=== PATIENT | female | born 1990 | race Caucasian/White ===

== ENCOUNTER 2021-11-07 10:57 | Observation (INO) ==
--- NOTE | 2021-11-07 11:08 | ED.PDOC ---
General ED Provider: Dr. CARMELO MANTILLA Chief Complaint: Nausea/Vomiting Stated Complaint: Abd pain with N and V for past 4-5 days, no fever or diarrhea, seen in ER here last night, w/u generally WNL, no worrisome findings, she did not fill any of the Rx given, no prior hx of GI problems, s/p kimberly. Time Seen by Provider: 11/07/21 11:07 Mode of Arrival: Ambulance Information Source: Patient Exam Limitations: No limitations Nursing and Triage Documentation Reviewed and Agree: Yes Does patient meet sepsis criteria?: No System Inflammatory Response Syndrome: Not Applicable Sepsis Protocol: For patient's 13 years and over: Temp is 96.8 and below OR 101 and greater Pulse >90 BPM Resp >20/minute Acutely Altered Mental Status Are patient's symptoms suggestive of a new infection, such as: -Pneumonia -Skin, Soft Tissue -Endocarditis -UTI -Bone, Joint Infection -Implantable Device -Acute Abdominal Infection -Wound Infection -Meningitis -Blood Stream Catheter Infection -Unknown GI Complaint Exam Vomiting/Diarrhea Complaint/Exam Onset/Duration: 4-5 d Symptoms Are: Still present Episodes of Vomiting over last 24 Hours: 20 Episodes of Diarrhea Over Last 24 Hours: 0 Initial Severity: Moderate Current Severity: Moderate Character of Vomiting: Reports Non-bilious Aggravating: Reports Food Alleviating: Reports None Associated Signs and Symptoms: Reports Abdominal pain and Cramping; Denies Dizziness, Light-headedness, Melena, Hematemesis or Fever Non-GI Risk Factors: Reports None Surgical Obstruction Risk Factors: Reports Prior abdominal surgery Related Surgical History: Reports Cholecystectomy Abdominal Findings: Present Other (generalized crampy pain) Review of Systems Review Of Systems Constitutional: Reports Malaise and Loss of appetite Eyes: Reports No symptoms Ears, Nose, Mouth, Throat: Reports No symptoms Respiratory: Reports No symptoms Cardiac: Reports No symptoms GI: Reports Abdominal pain, Nausea, Poor appetite, Poor fluid intake and Vomiting : Reports No symptoms Musculoskeletal: Reports No symptoms Skin: Reports No symptoms Neurological: Reports No symptoms Endocrine: Reports No symptoms Hematologic/Lymphatic: Reports No symptoms All Other Systems: Reviewed and Negative [facility] Family History Other No pertinent past medical history Social History Smoking and tobacco status: Never smoker Alcohol intake: never Substance use type: does not use Surgical History History of section Hx of cholecystectomy Tubal ligation status Female Reproductive History Menstrual Hx Hysterectomy: No Hx Tubal Ligation: Yes Physical Exam Physical Exam Appearance: Reports Ill-appearing Ill-appearing: Moderate Pain Distress: Moderate Eyes: Reports MOISE ENT: Reports Oropharynx normal Neck: Supple Respiratory: Reports Airway patent and Breath sounds clear Cardiovascular: Reports RRR and Pulses normal GI/: Reports Soft and Other (generalized cramping and pain) Musculoskeletal: Reports Normal strength and ROM intact Skin: Reports Warm and Dry Neurological: Reports Sensation intact, Motor intact and Alert Psychiatric: Reports Affect appropriate and Mood appropriate Interpretation Radiology Interpretation Xray Comments: Abd/pel CT done last night, report ? pyelo, but UA neg Critical Care Note Critical Care Note Total Critical Care Time (mins): 0 Course Course Hematology/Chemistry: 11/07/21 11:50 11/07/21 11:50 Orders, Labs, Meds: Lab Review 11/07/21 11/07/21 11/07/21 11:50 11:50 13:22 WBC 11.13 H RBC 4.26 Hgb 12.5 Hct 39.3 MCV 92.3 MCH 29.3 MCHC 31.8 RDW Coeff of Sylvia 14.0 Plt Count 717 H Immature Gran % (Auto) 0.5 Neut % (Auto) 78.0 H Lymph % (Auto) 15.5 Emanuel % (Auto) 5.2 Eos % (Auto) 0.4 Baso % (Auto) 0.4 Neut # (Auto) 8.7 H Lymph # (Auto) 1.7 Emanuel # (Auto) 0.6 Eos # (Auto) 0.1 Baso # (Auto) 0.1 Immature Gran # (Auto) 0.1 Sodium 138.3 Potassium 3.68 Chloride 103.3 Carbon Dioxide 26.8 Anion Gap 11.88 BUN 7.2 Creatinine 0.68 Estimated GFR (MDRD) 102.00 BUN/Creatinine Ratio 10.58 Glucose 103.5 Calcium 9.23 Total Bilirubin 0.77 AST 26.3 ALT 14.2 Alkaline Phosphatase 129.7 H Total Protein 7.78 Albumin 4.15 Globulin 3.63 Albumin/Globulin Ratio 1.14 Amylase 92.7 Lipase 83.6 Urine Color Yellow Urine Clarity Clear Urine pH 8.5 Ur Specific [place] 1.020 Urine Protein Trace H Urine Glucose (UA) Negative Urine Ketones Trace H Urine Blood Trace-intact H Urine Nitrite Negative Urine Bilirubin Negative Urine Urobilinogen 0.2 Ur Leukocyte Esterase Negative Urine Microscopic RBC 10-20 Ur Squamous Epith Cells 5-10 Urine Bacteria 2+ Urine Opiates Screen Ur Oxycodone Screen Urine Methadone Screen Ur Propoxyphene Screen Ur Barbiturates Screen U Tricyclic Antidepress Ur Phencyclidine Scrn Ur Amphetamine Screen U Methamphetamines Scrn U Benzodiazepines Scrn Urine Cocaine Screen U Cannabinoids Screen SARS CoV-2 RNA Rapid ALTON 11/07/21 11/07/21 13:22 16:45 WBC RBC Hgb Hct MCV MCH MCHC RDW Coeff of Sylvia Plt Count Immature Gran % (Auto) Neut % (Auto) Lymph % (Auto) Emanuel % (Auto) Eos % (Auto) Baso % (Auto) Neut # (Auto) Lymph # (Auto) Emanuel # (Auto) Eos # (Auto) Baso # (Auto) Immature Gran # (Auto) Sodium Potassium Chloride Carbon Dioxide Anion Gap BUN Creatinine Estimated GFR (MDRD) BUN/Creatinine Ratio Glucose Calcium Total Bilirubin AST ALT Alkaline Phosphatase Total Protein Albumin Globulin Albumin/Globulin Ratio Amylase Lipase Urine Color Urine Clarity Urine pH Ur Specific [place] Urine Protein Urine Glucose (UA) Urine Ketones Urine Blood Urine Nitrite Urine Bilirubin Urine Urobilinogen Ur Leukocyte Esterase Urine Microscopic RBC Ur Squamous Epith Cells Urine Bacteria Urine Opiates Screen Positive H Ur Oxycodone Screen Negative Urine Methadone Screen Negative Ur Propoxyphene Screen Negative Ur Barbiturates Screen Negative U Tricyclic Antidepress Negative Ur Phencyclidine Scrn Negative Ur Amphetamine Screen Negative U Methamphetamines Scrn Negative U Benzodiazepines Scrn Negative Urine Cocaine Screen Negative U Cannabinoids Screen Positive H SARS CoV-2 RNA Rapid ALTON Negative Orders Category Date Time Status ADMIT OBSERVATION [PLACE PATIENT OBSERVATION] .TO ADMISSION 11/07/21 16:28 Active MEDSURG (NON-MONITORED BED) ACTIVITY .Up ad Agnieszka CARE 11/07/21 16:30 Active INTAKE & OUTPUT Q8HR CARE 11/07/21 16:31 Active IP: INSERT SALINE LOCK ONCE CARE 11/07/21 16:31 Active IV ACCESS ONCE CARE 11/07/21 11:20 Active VITAL SIGNS Q8HR CARE 11/07/21 16:31 Completed REGULAR DIET DIETARY 11/07/21 Dinner Ordered AMYLASE Stat LAB 11/07/21 11:50 Completed CBC W/ AUTO DIFF DAILY@0600 LAB 11/08/21 06:00 Ordered CBC W/ AUTO DIFF DAILY@0600 LAB 11/09/21 06:00 Ordered CBC W/ AUTO DIFF Stat LAB 11/07/21 11:50 Completed COMPREHENSIVE METABOLIC PANEL DAILY@0600 LAB 11/08/21 06:00 Ordered COMPREHENSIVE METABOLIC PANEL DAILY@0600 LAB 11/09/21 06:00 Ordered COMPREHENSIVE METABOLIC PANEL Stat LAB 11/07/21 11:50 Completed DRUG SCREEN, URINE, RAPID Stat LAB 11/07/21 13:22 Completed LIPASE Stat LAB 11/07/21 11:50 Completed SARS COV-2 RNA RAPID ALTON Stat LAB 11/07/21 16:45 Completed URINALYSIS C & S IF INDICATED Stat LAB 11/07/21 13:22 Completed URINE CULTURE Stat LAB 11/07/21 13:22 Received Dicyclomine HCl [Bentyl] MEDS 11/07/21 12:58 Discontinued 20 mg PO ONCE ONE Hydromorphone HCl [Dilaudid 1 mg/ml Syringe] MEDS 11/07/21 14:31 Discontinued 1 mg IVP ONCE ONE Mag Hydrox/Al Hydrox/Simeth [Mylanta Susp] MEDS 11/07/21 12:58 Discontinued 30 ml PO ONCE ONE Metoclopramide HCl [Reglan] MEDS 11/07/21 17:31 Active 10 mg IVP ACHS PRN Metoclopramide HCl [Reglan] MEDS 11/07/21 14:31 Discontinued 10 mg IVP ONCE ONE Pantoprazole Sodium [Protonix IV] MEDS 11/07/21 11:23 Discontinued 40 mg IVP ONCE ONE Prochlorperazine Edisylate [Compazine] MEDS 11/07/21 13:34 Discontinued 10 mg IVP ONCE ONE Promethazine HCl [Phenergan 25 mg/ml Vial] MEDS 11/07/21 12:19 Discontinued 25 mg .ROUTE .STK-MED ONE Promethazine HCl [Phenergan 25 mg/ml Vial] 25 mg MEDS 11/07/21 11:20 Discontinued 0.9 % Sodium Chloride [Sodium Chloride] 50 ml IV ONCE Sodium Chloride 0.9% [Sodium Chloride] 1,000 ml MEDS 11/07/21 17:31 Discontinued IV 125 mls/hr Sodium Chloride 0.9% [Sodium Chloride] 1,000 ml MEDS 11/07/21 12:33 Discontinued IV BOLUS RESUSCITATION STATUS Routine OTHERS 11/07/21 16:30 Ordered Medications Generic Name Dose Route Start Last Admin Trade Name Arpitq PRN Reason Stop Dose Admin Sodium Chloride 1,000 mls @ 125 mls/hr 11/08/21 02:00 Sodium Chloride IV .Q8H MARILY Metoclopramide HCl 10 mg 11/07/21 17:31 11/07/21 20:57 Metoclopramide Hcl 10 Mg/2 Ml IVP 10 mg ACHS PRN Administration Nausea / Vomiting Ondansetron HCl 8 mg 11/07/21 18:00 11/07/21 23:53 Ondansetron Hcl/Pf 4 Mg/2 Ml Sdv IVP 8 mg Q6H MARILY Administration Pantoprazole Sodium 80 mg 11/07/21 18:30 11/07/21 18:21 Pantoprazole Sodium 40 Mg Vial IVP 80 mg DAILY MARILY Administration Discontinued Medications Generic Name Dose Route Start Last Admin Trade Name Ross PRN Reason Stop Dose Admin Al Hydroxide/Mg Hydroxide 30 ml 11/07/21 12:58 11/07/21 13:08 Mag Hydrox/Al Hydrox/Simeth 30 Ml Cup PO 11/07/21 12:59 30 ml ONCE ONE Administration Dicyclomine HCl 20 mg 11/07/21 12:58 11/07/21 13:07 Dicyclomine Hcl 10 Mg Capsule PO 11/07/21 12:59 20 mg ONCE ONE Administration Hydromorphone HCl 1 mg 11/07/21 14:31 11/07/21 14:56 Hydromorphone Hcl 1 Mg/Ml Syringe IVP 11/07/21 14:32 1 mg ONCE ONE Administration Promethazine HCl 25 mg/ Sodium 51 mls @ 75 mls/hr 11/07/21 11:20 11/07/21 12:29 Chloride IV 11/07/21 12:00 75 mls/hr ONCE ONE Administration Sodium Chloride 1,000 mls @ 1,000 mls/hr 11/07/21 12:33 11/07/21 12:34 Sodium Chloride IV 11/07/21 13:32 1,000 mls/hr BOLUS STA Administration Sodium Chloride 1,000 mls @ 125 mls/hr 11/07/21 17:31 11/07/21 18:16 Sodium Chloride IV 11/08/21 01:30 125 mls/hr .Q8H STA Administration Metoclopramide HCl 10 mg 11/07/21 14:31 11/07/21 14:56 Metoclopramide Hcl 10 Mg/2 Ml IVP 11/07/21 14:32 10 mg ONCE ONE Administration Pantoprazole Sodium 40 mg 11/07/21 11:23 11/07/21 12:30 Pantoprazole Sodium 40 Mg Vial IVP 11/07/21 11:24 40 mg ONCE ONE Administration Prochlorperazine Edisylate 10 mg 11/07/21 13:34 11/07/21 13:44 Prochlorperazine Edisylate 10 Mg/2 Ml Sdv IVP 11/07/21 13:35 10 mg ONCE ONE Administration Vital Signs: Temp Pulse Resp BP Pulse Ox 11/07/21 10:58 97.4 F L 66 18 131/83 100 Discharge Plan Discharge Patient Disposition: PLACED OBSERVATION Discharge Problem: Refractory nausea and vomiting, Abdominal pain ED Provider: CARMELO MANTILLA Condition: Stable Physician Progress Note: [Difficult to get symptoms under control, viral infxn vs sig gastritis, placed her in obs, no PCP.]
[2021-11-07] MEDS ORDERED: LACTATED RINGERS 1,000 ML IV STA (11:20)
[2021-11-07] MEDS ORDERED: PHENERGAN 25 MG/ML VIAL 25 MG in SODIUM CHLORIDE 50 ML IV ONE (11:20)
[2021-11-07] MEDS ORDERED: PROTONIX IV IVP ONE (11:23)
[2021-11-07 11:44] LABS: BASOPHILS # (AUTO) 0.1 K/uL (0-0.2); BASOPHILS % (AUTO) 0.4 % (0.0-3.0); EOSINOPHILS # (AUTO) 0.1 K/ul (0.0-0.7); EOSINOPHILS % (AUTO) 0.4 % (0.0-7.0); HEMATOCRIT 39.3 % (37.0-47.0); HEMOGLOBIN 12.5 g/dl (12.0-16.0); IMMATURE GRANULOCYTE # (AUTO) 0.1 (0.0-1.0); IMMATURE GRANULOCYTE % (AUTO) 0.5 % (0.0-5.0); LYMPHOCYTES # (AUTO) 1.7 K/uL (0.60-3.4); LYMPHOCYTES % (AUTO) 15.5 (10.0-50.0); MEAN CORPUSCULAR HEMOGLOBIN 29.3 pg (27.0-31.0); MEAN CORPUSCULAR HGB CONC 31.8 (31.8-35.4); MEAN CORPUSCULAR VOLUME 92.3 fl (81.0-99.0); MONOCYTES # (AUTO) 0.6 K/uL (0.4-2.0); MONOCYTES % (AUTO) 5.2 (0-10); NEUTROPHILS # (AUTO) 8.7 K/ul (2.0-6.9); PLATELET COUNT 717 10^3/uL (140-440); RED BLOOD COUNT 4.26 10^6/ul (4.20-5.40); WHITE BLOOD COUNT 11.13 K/ul (4.6-10.2)
[2021-11-07 12:00] LABS: ALANINE AMINOTRANSFERASE 14.2 U/L (0-35); ALBUMIN 4.15 g/dL (3.5-5.0); ALKALINE PHOSPHATASE 129.7 U/L (38-126); AMYLASE 92.7 U/L (30-110); ASPARTATE AMINO TRANSFERASE 26.3 U/L (14-36); BILIRUBIN,TOTAL 0.77 mg/dL (0.2-1.3); BLOOD UREA NITROGEN 7.2 mg/dL (7-17); CALCIUM 9.23 mg/dL (8.4-10.2); CARBON DIOXIDE 26.8 mmol/L (22-30.0); CHLORIDE 103.3 mmol/L (98-107); CREATININE 0.68 mg/dL (0.60-1.30); GLUCOSE 103.5 mg/dL (74-106); LIPASE 83.6 U/L (23-300); POTASSIUM 3.68 mmol/L (3.5-5.1); SODIUM 138.3 mmol/L (134.5-145); TOTAL PROTEIN 7.78 g/dL (6.3-8.2)
[2021-11-07] MEDS ORDERED: PHENERGAN 25 MG/ML VIAL ONE (12:19)
[2021-11-07] MEDS ORDERED: SODIUM CHLORIDE 1,000 ML IV STA ×2 (12:33→17:31)
[2021-11-07] MEDS ORDERED: MYLANTA SUSP PO ONE (12:58)
[2021-11-07] MEDS ORDERED: BENTYL PO ONE (12:58)
[2021-11-07 13:32] LABS: BILIRUBIN,URINE Negative (NEGATIVE); CLARITY,URINE Clear (CLEAR); COLOR,URINE Yellow (YELLOW); GLUCOSE, URINE (UA) Negative (NEGATIVE); KETONES,URINE Trace (NEGATIVE); LEUKOCYTE ESTERASE ,URINE Negative (NEGATIVE); NITRITE,URINE Negative (NEGATIVE); PH,URINE 8.5 (5-9); PROTEIN,URINE Trace (NEGATIVE); URINE, BLOOD Trace-intact (NEGATIVE); UROBILINOGEN,URINE 0.2 (0.2)
[2021-11-07] MEDS ORDERED: COMPAZINE IVP ONE (13:34)
[2021-11-07 13:36] LABS: BACTERIA,URINE 2+ (NOT PRESENT)
[2021-11-07 13:41] LABS: AMPHETAMINE SCREEN,URINE NEGATIVE (NEGATIVE); BARBITURATE SCREEN,URINE NEGATIVE (NEGATIVE); BENZODIAZEPINES SCREEN,URINE NEGATIVE (NEGATIVE); CANNABINOID SCREEN,URINE POSITIVE (NEGATIVE); COCAIN SCREEN,URINE NEGATIVE (NEGATIVE); METHADONE URINE SCREEN NEGATIVE (NEGATIVE); METHAMPHETAMINES SCREEN,URINE NEGATIVE (NEGATIVE); OPIATE SCREEN,URINE POSITIVE (NEGATIVE); OXYCODONE URINE SCREEN NEGATIVE (NEGATIVE); PHENCYCLIDINE SCREEN,URINE NEGATIVE (NEGATIVE); PROPOXYPHENE URINE SCREEN NEGATIVE (NEGATIVE); TRICYCLIC ANTIDEPRESSANTS URIN NEGATIVE (NEGATIVE)
[2021-11-07] MEDS ORDERED: REGLAN IVP ONE (14:31)
[2021-11-07] MEDS ORDERED: DILAUDID 1 MG/ML SYRINGE IVP ONE (14:31)
[2021-11-07] MEDS ORDERED: VERSED IVP ONE (17:41)
[2021-11-07] MEDS ORDERED: SUBLIMAZE IVP ONE (17:41)
[2021-11-07 17:59] VITALS: BMI 30.3
[2021-11-07] MEDS ORDERED: PROTONIX IV SCH (18:00)
[2021-11-07] MEDS ORDERED: SODIUM CHLORIDE IV SCH (18:00)
[2021-11-07] MEDS ORDERED: PROTONIX IV ONE (18:10)
[2021-11-07] MEDS: PROTONIX IV IVP SCH (18:21)
[2021-11-07] MEDS: ZOFRAN 4 MG/2 ML IVP SCH ×2 (18:26→23:53)
[2021-11-07] MEDS: REGLAN IVP PRN (20:57)
[2021-11-08] MEDS ORDERED: SODIUM CHLORIDE 1,000 ML IV SCH (02:00)
[2021-11-08 05:24] LABS: BASOPHILS # (AUTO) 0.1 K/uL (0-0.2); BASOPHILS % (AUTO) 0.4 % (0.0-3.0); EOSINOPHILS % (AUTO) 0.1 % (0.0-7.0); HEMATOCRIT 39.8 % (37.0-47.0); HEMOGLOBIN 12.9 g/dl (12.0-16.0); IMMATURE GRANULOCYTE # (AUTO) 0.1 (0.0-1.0); IMMATURE GRANULOCYTE % (AUTO) 0.5 % (0.0-5.0); LYMPHOCYTES # (AUTO) 2.1 K/uL (0.60-3.4); LYMPHOCYTES % (AUTO) 14.5 (10.0-50.0); MEAN CORPUSCULAR HEMOGLOBIN 30.1 pg (27.0-31.0); MEAN CORPUSCULAR HGB CONC 32.4 (31.8-35.4); MEAN CORPUSCULAR VOLUME 92.8 fl (81.0-99.0); MONOCYTES # (AUTO) 0.6 K/uL (0.4-2.0); NEUTROPHILS # (AUTO) 11.4 K/ul (2.0-6.9); NEUTROPHILS % (AUTO) 80.5 % (42.2-75.2); PLATELET COUNT 749 10^3/uL (140-440); RDW COEFFICIENT OF VARIATION 13.9 % (11.6-14.8); RED BLOOD COUNT 4.29 10^6/ul (4.20-5.40); WHITE BLOOD COUNT 14.17 K/ul (4.6-10.2)
[2021-11-08 05:36] LABS: ALANINE AMINOTRANSFERASE 12.8 U/L (0-35); ALBUMIN 4.21 g/dL (3.5-5.0); ASPARTATE AMINO TRANSFERASE 22.3 U/L (14-36); BILIRUBIN,TOTAL 0.63 mg/dL (0.2-1.3); BLOOD UREA NITROGEN 4.8 mg/dL (7-17); CALCIUM 9.25 mg/dL (8.4-10.2); CARBON DIOXIDE 26.2 mmol/L (22-30.0); CREATININE 0.68 mg/dL (0.60-1.30); GLUCOSE 106.8 mg/dL (74-106); POTASSIUM 3.94 mmol/L (3.5-5.1); SODIUM 139.1 mmol/L (134.5-145); TOTAL PROTEIN 7.88 g/dL (6.3-8.2)
[2021-11-08] MEDS: ZOFRAN 4 MG/2 ML IVP SCH (05:39)
[2021-11-08] MEDS: HALDOL IVP PRN ×2 (08:00→17:30)
[2021-11-08] MEDS ORDERED: LEVAQUIN 500 MG/100 ML D5W 500 MG/100 ML BAG IV SCH (09:00)
[2021-11-08] MEDS ORDERED: LEVAQUIN 750 MG/150 ML D5W 750 MG/150 ML BAG IV SCH (09:00)
--- NOTE | 2021-11-08 09:01 | PCM ---
Chief Complaint Chief Complaint: Intractable nausea, vomiting and abdominal pain History of Present Illness History of Present Illness: Patient is a 31 year old female who was two days ago for nausea and vomiting and abdominal pain for 4 days. She had medications and was sent home feeling better. She returned yesterday with similar complaints. She denied any urinary symptoms and was admitted for nausea vomiting and abdominal pain. pain is better after Dilaudid. Nausea has improved with Haldol. In the mean time Urine culture from the first day is back and is positive for >100k bacteria. Ct on first day was suggestive of Pyelo. Today she continues to have diffuse abdominal pain but nausea is better. Review of Systems Constitutional: Reports Loss of appetite Eyes: Reports No symptoms Ears: Reports No symptoms Nose: Reports No symptoms Throat: Reports No symptoms Mouth: Reports No symptoms Cardiovascular: Reports No symptoms Gastrointestinal: Reports Abdominal pain, Nausea and Vomiting Genitourinary: Denies dysuria, hematuria or frequency Neurological: Reports No symptoms Musculoskeletal: Reports No symptoms Skin: Reports No symptoms Immunology: Reports No symptoms Hematology: Reports No symptoms Endocrine: Reports No symptoms Psychiatric: Reports No symptoms Habits: Reports Substance use (used marijuana recenlty ) Allergies Allergies Allergy/AdvReac Type Severity Reaction Status Date / Time No Known Allergies Allergy Verified 11/07/21 11:02 [facility] Medical History (Updated 11/08/21 @ 08:59 by ELIF CERVANTES MD) Pyelonephritis Surgical History History of section Hx of cholecystectomy Tubal ligation status Family History Other No pertinent past medical history Social History Smoking and tobacco status: Never smoker Alcohol intake: never Substance use type: does not use Medications Medications: Medications Generic Name Dose Route Start Last Admin Trade Name Freq PRN Reason Stop Dose Admin Haloperidol Lactate 1 - 2 mg 11/08/21 07:39 11/08/21 08:00 Haloperidol Lactate 5 Mg/Ml Vial IVP 2 mg Q6H PRN Administration NAUSEA/VOMITTING Hydromorphone HCl 1 mg 11/08/21 08:44 Hydromorphone Hcl 1 Mg/Ml Syringe IVP Q4HR PRN MODERATE PAIN Levofloxacin/Dextrose 750 mg in 150 mls @ 100 mls/hr 11/08/21 09:00 Levaquin 750 Mg/150 Ml D5w IV 11/11/21 08:59 DAILY MARILY Potassium Chloride/Dextrose/Sod Cl 1,000 mls @ 150 mls/hr 11/08/21 09:00 D5%-1/2ns-Kcl 20 Meq/L Iv Agustina IV .Q6H40M MARILY Metoclopramide HCl 10 mg 11/07/21 17:31 11/07/21 20:57 Metoclopramide Hcl 10 Mg/2 Ml IVP 10 mg ACHS PRN Administration Nausea / Vomiting Pantoprazole Sodium 80 mg 11/07/21 18:30 11/07/21 18:21 Pantoprazole Sodium 40 Mg Vial IVP 80 mg DAILY MARILY Administration Body Composition Height: 5 ft 3 in Weight: 77.706 kg Body Mass Index (BMI): 30.3 Vital Signs Temperature: 97.7 F Pulse Rate: 77 Respiratory Rate: 18 Blood Pressure: 120/69 O2 Sat by Pulse Oximetry: 100 Physical Examination Appearance: Reports Ill-appearing Ill-appearing: Moderate Pain Distress: Severe Eyes: Reports Conjunctiva clear ENT: Reports Nose normal and Oropharynx normal Neck: Not Examined Respiratory: Reports Airway patent and Breath sounds clear Cardiovascular: Reports RRR, Pulses normal and No rub GI/: Reports Soft and Tender (Diffusely) Musculoskeletal: Reports Normal strength and ROM intact Skin: Reports Warm and Dry Neurological: Reports Motor intact, Alert and Oriented Psychiatric: Reports Anxious Lab/Tests/Diagnostic Imaging Lab/Tests/Diagnostic Imaging: Lab Review 11/07/21 11/07/21 11/07/21 11:50 11:50 13:22 WBC 11.13 H RBC 4.26 Hgb 12.5 Hct 39.3 MCV 92.3 MCH 29.3 MCHC 31.8 RDW Coeff of Sylvia 14.0 Plt Count 717 H Immature Gran % (Auto) 0.5 Neut % (Auto) 78.0 H Lymph % (Auto) 15.5 Larue % (Auto) 5.2 Eos % (Auto) 0.4 Baso % (Auto) 0.4 Neut # (Auto) 8.7 H Lymph # (Auto) 1.7 Larue # (Auto) 0.6 Eos # (Auto) 0.1 Baso # (Auto) 0.1 Immature Gran # (Auto) 0.1 Sodium 138.3 Potassium 3.68 Chloride 103.3 Carbon Dioxide 26.8 Anion Gap 11.88 BUN 7.2 Creatinine 0.68 Estimated GFR (MDRD) 102.00 BUN/Creatinine Ratio 10.58 Glucose 103.5 Calcium 9.23 Total Bilirubin 0.77 AST 26.3 ALT 14.2 Alkaline Phosphatase 129.7 H Total Protein 7.78 Albumin 4.15 Globulin 3.63 Albumin/Globulin Ratio 1.14 Amylase 92.7 Lipase 83.6 Urine Color Yellow Urine Clarity Clear Urine pH 8.5 Ur Specific Spring 1.020 Urine Protein Trace H Urine Glucose (UA) Negative Urine Ketones Trace H Urine Blood Trace-intact H Urine Nitrite Negative Urine Bilirubin Negative Urine Urobilinogen 0.2 Ur Leukocyte Esterase Negative Urine Microscopic RBC 10-20 Ur Squamous Epith Cells 5-10 Urine Bacteria 2+ Urine Opiates Screen Ur Oxycodone Screen Urine Methadone Screen Ur Propoxyphene Screen Ur Barbiturates Screen U Tricyclic Antidepress Ur Phencyclidine Scrn Ur Amphetamine Screen U Methamphetamines Scrn U Benzodiazepines Scrn Urine Cocaine Screen U Cannabinoids Screen SARS CoV-2 RNA Rapid ALTON 11/07/21 11/07/21 11/08/21 13:22 16:45 05:05 WBC 14.17 H RBC 4.29 Hgb 12.9 Hct 39.8 MCV 92.8 MCH 30.1 MCHC 32.4 RDW Coeff of Sylvia 13.9 Plt Count 749 H Immature Gran % (Auto) 0.5 Neut % (Auto) 80.5 H Lymph % (Auto) 14.5 Larue % (Auto) 4.0 Eos % (Auto) 0.1 Baso % (Auto) 0.4 Neut # (Auto) 11.4 H Lymph # (Auto) 2.1 Larue # (Auto) 0.6 Eos # (Auto) 0.0 Baso # (Auto) 0.1 Immature Gran # (Auto) 0.1 Sodium Potassium Chloride Carbon Dioxide Anion Gap BUN Creatinine Estimated GFR (MDRD) BUN/Creatinine Ratio Glucose Calcium Total Bilirubin AST ALT Alkaline Phosphatase Total Protein Albumin Globulin Albumin/Globulin Ratio Amylase Lipase Urine Color Urine Clarity Urine pH Ur Specific Spring Urine Protein Urine Glucose (UA) Urine Ketones Urine Blood Urine Nitrite Urine Bilirubin Urine Urobilinogen Ur Leukocyte Esterase Urine Microscopic RBC Ur Squamous Epith Cells Urine Bacteria Urine Opiates Screen Positive H Ur Oxycodone Screen Negative Urine Methadone Screen Negative Ur Propoxyphene Screen Negative Ur Barbiturates Screen Negative U Tricyclic Antidepress Negative Ur Phencyclidine Scrn Negative Ur Amphetamine Screen Negative U Methamphetamines Scrn Negative U Benzodiazepines Scrn Negative Urine Cocaine Screen Negative U Cannabinoids Screen Positive H SARS CoV-2 RNA Rapid ALTON Negative 11/08/21 05:05 WBC RBC Hgb Hct MCV MCH MCHC RDW Coeff of Sylvia Plt Count Immature Gran % (Auto) Neut % (Auto) Lymph % (Auto) Larue % (Auto) Eos % (Auto) Baso % (Auto) Neut # (Auto) Lymph # (Auto) Larue # (Auto) Eos # (Auto) Baso # (Auto) Immature Gran # (Auto) Sodium 139.1 Potassium 3.94 Chloride 104.0 Carbon Dioxide 26.2 Anion Gap 12.84 BUN 4.8 L Creatinine 0.68 Estimated GFR (MDRD) 102.00 BUN/Creatinine Ratio 7.05 Glucose 106.8 H Calcium 9.25 Total Bilirubin 0.63 AST 22.3 ALT 12.8 Alkaline Phosphatase 121.0 Total Protein 7.88 Albumin 4.21 Globulin 3.67 Albumin/Globulin Ratio 1.14 Amylase Lipase Urine Color Urine Clarity Urine pH Ur Specific Spring Urine Protein Urine Glucose (UA) Urine Ketones Urine Blood Urine Nitrite Urine Bilirubin Urine Urobilinogen Ur Leukocyte Esterase Urine Microscopic RBC Ur Squamous Epith Cells Urine Bacteria Urine Opiates Screen Ur Oxycodone Screen Urine Methadone Screen Ur Propoxyphene Screen Ur Barbiturates Screen U Tricyclic Antidepress Ur Phencyclidine Scrn Ur Amphetamine Screen U Methamphetamines Scrn U Benzodiazepines Scrn Urine Cocaine Screen U Cannabinoids Screen SARS CoV-2 RNA Rapid ALTON Orders Category Date Time Status ADMIT OBSERVATION [PLACE PATIENT OBSERVATION] .TO ADMISSION 11/07/21 16:28 Active MEDSURG (NON-MONITORED BED) ACTIVITY .Up ad Agnieszka CARE 11/07/21 16:30 Active INTAKE & OUTPUT Q8HR CARE 11/07/21 16:31 Active IP: INSERT SALINE LOCK ONCE CARE 11/07/21 16:31 Active IV ACCESS ONCE CARE 11/07/21 11:20 Active VITAL SIGNS Q8HR CARE 11/07/21 16:31 Completed REGULAR DIET DIETARY 11/07/21 Dinner Ordered AMYLASE Stat LAB 11/07/21 11:50 Completed BLOOD CULTURE Stat LAB 11/08/21 08:27 Ordered CBC W/ AUTO DIFF DAILY@0600 LAB 11/08/21 05:05 Completed CBC W/ AUTO DIFF DAILY@0600 LAB 11/09/21 06:00 Ordered CBC W/ AUTO DIFF Stat LAB 11/07/21 11:50 Completed COMPREHENSIVE METABOLIC PANEL DAILY@0600 LAB 11/08/21 05:05 Completed COMPREHENSIVE METABOLIC PANEL DAILY@0600 LAB 11/09/21 06:00 Ordered COMPREHENSIVE METABOLIC PANEL Stat LAB 11/07/21 11:50 Completed DRUG SCREEN, URINE, RAPID Stat LAB 11/07/21 13:22 Completed LIPASE Stat LAB 11/07/21 11:50 Completed SARS COV-2 RNA RAPID ALTON Stat LAB 11/07/21 16:45 Completed URINALYSIS C & S IF INDICATED Stat LAB 11/07/21 13:22 Completed URINE CULTURE Stat LAB 11/07/21 13:22 Results Dicyclomine HCl [Bentyl] MEDS 11/07/21 12:58 Discontinued 20 mg PO ONCE ONE Haloperidol Lactate [Haldol] MEDS 11/08/21 07:39 Active 1 - 2 mg IVP Q6H PRN Hydromorphone HCl [Dilaudid 1 mg/ml Syringe] MEDS 11/07/21 14:31 Discontinued 1 mg IVP ONCE ONE Hydromorphone HCl [Dilaudid 1 mg/ml Syringe] MEDS 11/08/21 08:44 Active 1 mg IVP Q4HR PRN Levofloxacin/D5w [Levaquin 750 mg/150 ml D5w] MEDS 11/08/21 09:00 Active 750 mg in 150 ml IV DAILY Mag Hydrox/Al Hydrox/Simeth [Mylanta Susp] MEDS 11/07/21 12:58 Discontinued 30 ml PO ONCE ONE Metoclopramide HCl [Reglan] MEDS 11/07/21 17:31 Active 10 mg IVP ACHS PRN Metoclopramide HCl [Reglan] MEDS 11/07/21 14:31 Discontinued 10 mg IVP ONCE ONE Ondansetron HCl/Pf [Zofran 4 mg/2 ml] MEDS 11/07/21 18:00 Discontinued 8 mg IVP Q6H Pantoprazole Sodium [Protonix IV] MEDS 11/07/21 11:23 Discontinued 40 mg IVP ONCE ONE Pantoprazole Sodium [Protonix IV] MEDS 11/07/21 18:10 Discontinued 80 mg .ROUTE .STK-MED ONE Pantoprazole Sodium [Protonix IV] MEDS 11/07/21 18:30 Active 80 mg IVP DAILY Potassium Chloride/D5-0.45NACL [D5%-1/2Ns-KCl 20 Meq/l MEDS 11/08/21 09:00 Active IV Agustina] 1,000 ml IV 150 mls/hr Prochlorperazine Edisylate [Compazine] MEDS 11/07/21 13:34 Discontinued 10 mg IVP ONCE ONE Promethazine HCl [Phenergan 25 mg/ml Vial] MEDS 11/07/21 12:19 Discontinued 25 mg .ROUTE .STK-MED ONE Promethazine HCl [Phenergan 25 mg/ml Vial] 25 mg MEDS 11/07/21 11:20 Discontinued 0.9 % Sodium Chloride [Sodium Chloride] 50 ml IV ONCE Sodium Chloride 0.9% [Sodium Chloride] 1,000 ml MEDS 11/07/21 17:31 Discontinued IV 125 mls/hr Sodium Chloride 0.9% [Sodium Chloride] 1,000 ml MEDS 11/08/21 02:00 Active IV 125 mls/hr Sodium Chloride 0.9% [Sodium Chloride] 1,000 ml MEDS 11/07/21 12:33 Discontinued IV BOLUS RESUSCITATION STATUS Routine OTHERS 11/07/21 16:30 Ordered Medications Generic Name Dose Route Start Last Admin Trade Name Freq PRN Reason Stop Dose Admin Haloperidol Lactate 1 - 2 mg 11/08/21 07:39 11/08/21 08:00 Haloperidol Lactate 5 Mg/Ml Vial IVP 2 mg Q6H PRN Administration NAUSEA/VOMITTING Hydromorphone HCl 1 mg 11/08/21 08:44 Hydromorphone Hcl 1 Mg/Ml Syringe IVP Q4HR PRN MODERATE PAIN Levofloxacin/Dextrose 750 mg in 150 mls @ 100 mls/hr 11/08/21 09:00 Levaquin 750 Mg/150 Ml D5w IV 11/11/21 08:59 DAILY MARILY Potassium Chloride/Dextrose/Sod Cl 1,000 mls @ 150 mls/hr 11/08/21 09:00 D5%-1/2ns-Kcl 20 Meq/L Iv Agustina IV .Q6H40M MARILY Metoclopramide HCl 10 mg 11/07/21 17:31 11/07/21 20:57 Metoclopramide Hcl 10 Mg/2 Ml IVP 10 mg ACHS PRN Administration Nausea / Vomiting Pantoprazole Sodium 80 mg 11/07/21 18:30 11/07/21 18:21 Pantoprazole Sodium 40 Mg Vial IVP 80 mg DAILY MARILY Administration Discontinued Medications Generic Name Dose Route Start Last Admin Trade Name Freq PRN Reason Stop Dose Admin Al Hydroxide/Mg Hydroxide 30 ml 11/07/21 12:58 11/07/21 13:08 Mag Hydrox/Al Hydrox/Simeth 30 Ml Cup PO 11/07/21 12:59 30 ml ONCE ONE Administration Dicyclomine HCl 20 mg 11/07/21 12:58 11/07/21 13:07 Dicyclomine Hcl 10 Mg Capsule PO 11/07/21 12:59 20 mg ONCE ONE Administration Hydromorphone HCl 1 mg 11/07/21 14:31 11/07/21 14:56 Hydromorphone Hcl 1 Mg/Ml Syringe IVP 11/07/21 14:32 1 mg ONCE ONE Administration Promethazine HCl 25 mg/ Sodium 51 mls @ 75 mls/hr 11/07/21 11:20 11/07/21 12:29 Chloride IV 11/07/21 12:00 75 mls/hr ONCE ONE Administration Sodium Chloride 1,000 mls @ 1,000 mls/hr 11/07/21 12:33 11/07/21 12:34 Sodium Chloride IV 11/07/21 13:32 1,000 mls/hr BOLUS STA Administration Sodium Chloride 1,000 mls @ 125 mls/hr 11/07/21 17:31 11/07/21 18:16 Sodium Chloride IV 11/08/21 01:30 125 mls/hr .Q8H STA Administration Sodium Chloride 1,000 mls @ 125 mls/hr 11/08/21 02:00 11/08/21 02:50 Sodium Chloride IV 125 mls/hr .Q8H MARILY Administration Metoclopramide HCl 10 mg 11/07/21 14:31 11/07/21 14:56 Metoclopramide Hcl 10 Mg/2 Ml IVP 11/07/21 14:32 10 mg ONCE ONE Administration Ondansetron HCl 8 mg 11/07/21 18:00 11/08/21 05:39 Ondansetron Hcl/Pf 4 Mg/2 Ml Sdv IVP 8 mg Q6H MARILY Administration Pantoprazole Sodium 40 mg 11/07/21 11:23 11/07/21 12:30 Pantoprazole Sodium 40 Mg Vial IVP 11/07/21 11:24 40 mg ONCE ONE Administration Prochlorperazine Edisylate 10 mg 11/07/21 13:34 11/07/21 13:44 Prochlorperazine Edisylate 10 Mg/2 Ml Sdv IVP 11/07/21 13:35 10 mg ONCE ONE Administration Assessment (1) Pyelonephritis: Status: Acute Code(s): N12 - Tubulo-interstitial nephritis, not specified as acute or chronic SNOMED Code(s): 20977572 Assessment: with Positive urine culture for Gram negative rods. Suspect E-coli. Start Levaquin (2) Refractory nausea and vomiting: Status: Acute Code(s): R11.2 - Nausea with vomiting, unspecified SNOMED Code(s): 30870749 Assessment: Response well to Haldol, continue Haldol alternating with phenergen and zofran Continue to give IV fluid replacement. (3) Abdominal pain: Status: Acute Code(s): R10.9 - Unspecified abdominal pain SNOMED Code(s): 83498373 Assessment: Continue pain medications with Toradol and Dilaudid as needed for comfort. Plan Plan: continue IV Fluids but change to D5 1/2 with 20meq kcl @ 150 Start IV Levaquin 750mg daily after Blood cultures continue nausea medications Dilaudid 1mg every 4 hours as needed for pain Continue Protonix for GI prophylaxsis
[2021-11-08] MEDS: D5%-1/2NS-KCL 20 MEQ/L IV SOL 1,000 ML IV SCH ×2 (09:11→17:26)
[2021-11-08] MEDS: LEVAQUIN 750 MG/150 ML D5W 750 MG/150 ML BAG IV SCH (09:11)
[2021-11-08] MEDS: PROTONIX IV IVP SCH (09:11)
[2021-11-08] MEDS: DILAUDID 1 MG/ML SYRINGE IVP PRN ×2 (09:16→16:01)
[2021-11-08] MEDS: REGLAN IVP PRN (16:01)
[2021-11-09] MEDS: D5%-1/2NS-KCL 20 MEQ/L IV SOL 1,000 ML IV SCH ×3 (00:50→16:47)
[2021-11-09] MEDS: REGLAN IVP PRN ×2 (00:50→07:21)
[2021-11-09] MEDS: DILAUDID 1 MG/ML SYRINGE IVP PRN ×4 (00:51→20:49)
[2021-11-09] MEDS: HALDOL IVP PRN ×2 (02:41→14:33)
[2021-11-09 06:12] LABS: BASOPHILS % (AUTO) 0.4 % (0.0-3.0); HEMATOCRIT 41.3 % (37.0-47.0); HEMOGLOBIN 13.1 g/dl (12.0-16.0); IMMATURE GRANULOCYTE # (AUTO) 0.1 (0.0-1.0); IMMATURE GRANULOCYTE % (AUTO) 0.5 % (0.0-5.0); LYMPHOCYTES # (AUTO) 1.3 K/uL (0.60-3.4); LYMPHOCYTES % (AUTO) 12.5 (10.0-50.0); MEAN CORPUSCULAR HEMOGLOBIN 29.6 pg (27.0-31.0); MEAN CORPUSCULAR HGB CONC 31.7 (31.8-35.4); MEAN CORPUSCULAR VOLUME 93.2 fl (81.0-99.0); MONOCYTES # (AUTO) 0.5 K/uL (0.4-2.0); MONOCYTES % (AUTO) 4.5 (0-10); NEUTROPHILS # (AUTO) 8.3 K/ul (2.0-6.9); NEUTROPHILS % (AUTO) 82.1 % (42.2-75.2); PLATELET COUNT 615 10^3/uL (140-440); RDW COEFFICIENT OF VARIATION 13.8 % (11.6-14.8); RED BLOOD COUNT 4.43 10^6/ul (4.20-5.40); WHITE BLOOD COUNT 10.04 K/ul (4.6-10.2)
[2021-11-09 06:25] LABS: ALANINE AMINOTRANSFERASE 12.1 U/L (0-35); ALBUMIN 4.48 g/dL (3.5-5.0); ALKALINE PHOSPHATASE 119.9 U/L (38-126); ASPARTATE AMINO TRANSFERASE 21.8 U/L (14-36); BILIRUBIN,TOTAL 0.54 mg/dL (0.2-1.3); BLOOD UREA NITROGEN 3.3 mg/dL (7-17); CALCIUM 9.31 mg/dL (8.4-10.2); CARBON DIOXIDE 27.3 mmol/L (22-30.0); CHLORIDE 101.2 mmol/L (98-107); CREATININE 0.69 mg/dL (0.60-1.30); POTASSIUM 4.12 mmol/L (3.5-5.1); SODIUM 136.9 mmol/L (134.5-145); TOTAL PROTEIN 8.11 g/dL (6.3-8.2)
[2021-11-09] MEDS: LEVAQUIN 750 MG/150 ML D5W 750 MG/150 ML BAG IV SCH (08:32)
[2021-11-09] MEDS: PROTONIX IV IVP SCH (10:16)
--- NOTE | 2021-11-09 10:52 | PCM.PROG ---
Date Seen by Provider: 11/09/21 Time Seen by Provider: 10:49 Subjective: pt continues left abdominal cramps relieved w/ diaudid, +NV controlled w/ Reglan Objective: Vitals: T=97.1 F, P=87, R=16, ZH=623/84, SPO2=98 HEENT: []conjunctiva clear Neck: []supple Lungs: [] clear to aus CVS: []RRR Abdomen: []soft, no rebound Extremities: []carina Neurological: []alert and fluent speech Skin: []pink Lab/Tests/Diagnostic Imaging: [] Wbc from 14 to 10 today (1) Pyelonephritis: Status: Acute Code(s): N12 - Tubulo-interstitial nephritis, not specified as acute or chronic SNOMED Code(s): 94603959 (2) Refractory nausea and vomiting: Status: Acute Code(s): R11.2 - Nausea with vomiting, unspecified SNOMED Code(s): 32487380 (3) Abdominal pain: Status: Acute Code(s): R10.9 - Unspecified abdominal pain SNOMED Code(s): 30845421 Plan: stop levaquin and start Rocephin based on urine c&s care to Dr Cheng at 19:00
[2021-11-10] MEDS: D5%-1/2NS-KCL 20 MEQ/L IV SOL 1,000 ML IV SCH ×2 (01:53→08:16)
[2021-11-10] MEDS: DILAUDID 1 MG/ML SYRINGE IVP PRN ×2 (02:05→08:49)
[2021-11-10 05:47] VITALS: TEMP 98
[2021-11-10] MEDS: PROTONIX IV IVP SCH (08:22)
[2021-11-10] MEDS: REGLAN IVP PRN (08:22)
[2021-11-10] MEDS ORDERED: ROCEPHIN 1 GM/50 ML D5W 1 GM/50 ML BAG IV SCH (09:00)
[2021-11-10 12:02] VITALS: BP 114/73
--- NOTE | 2021-11-10 13:00 | PCM.PROG ---
Date Seen by Provider: 11/10/21 Time Seen by Provider: 10:30 Subjective: Feeling better / eating / ready to be discharged Objective: Vitals: T=98 F, P=90, R=16, MJ=191/73, SPO2=98 HEENT: [No icterus ] Neck: [supple ] Lungs: [clear ] CVS: [no flank pain ] Abdomen: [soft ] Extremities: [gait normal ] Neurological: [alert oriented times 3 ] Skin: [no rash ] Lab/Tests/Diagnostic Imaging: [ wbc 10.4 , HGB 13.1, PTL 615 ,AIC 5.5 , ORTHOSTATIC NEG , URINE CULTURE FINAL E.CULTURE SENSITIVE TO ALL ] (1) Pyelonephritis: Status: Acute Code(s): N12 - Tubulo-interstitial nephritis, not specified as acute or chronic SNOMED Code(s): 96265189 (2) Refractory nausea and vomiting: Status: Acute Code(s): R11.2 - Nausea with vomiting, unspecified SNOMED Code(s): 02014507 (3) Abdominal pain: Status: Acute Code(s): R10.9 - Unspecified abdominal pain SNOMED Code(s): 70502504 Plan: 1.Discharge home today 2. Cipro 500mg - one am and pm daily started today for 5 days 3. Zofran ODT 4 mg - 1 po q 6 hrs prn nausea # 4 tabs 4. Call office Friday for follow up 5.once daily yogurt or OTC probiotic daily for 5 days 6. APAP or NSAID for pain per bottle instructions 7.Discussed UTI preventative measures 8. Return to ER anytime if worsen or concern
--- NOTE | 2021-11-10 16:23 | PCM.DC ---
Final Diagnosis: ACUTE LEFT PYELONEPHRITIS Physical Exam Appearance: Well-appearing and No pain distress Ill-appearing: None Pain Distress: None Eyes: MOISE, EOMI and Conjunctiva clear ENT: Oropharynx normal Neck: Supple Respiratory: Breath sounds clear Cardiovascular: RRR GI/: Soft and Nontender Musculoskeletal: ROM intact Skin: Warm, Dry and Normal color Neurological: Sensation intact, Motor intact, Alert and Oriented Psychiatric: Affect appropriate (1) Pyelonephritis: Status: Acute Code(s): N12 - Tubulo-interstitial nephritis, not specified as acute or chronic SNOMED Code(s): 63478398 (2) Refractory nausea and vomiting: Status: Acute Code(s): R11.2 - Nausea with vomiting, unspecified SNOMED Code(s): 35587600 (3) Abdominal pain: Status: Acute Code(s): R10.9 - Unspecified abdominal pain SNOMED Code(s): 41096565 Reason for Hospitalization: NAUSEA VOMITING WITH LEFT PYELONEPHRITIS Prognosis/Condition at Discharge: IMPROVED AND STABLE Medications at Discharge: Ambulatory Orders Medication Instructions Recorded dicyclomine 10 mg capsule 10 mg PO TID PRN #20 cap 11/07/21 pantoprazole 20 mg tablet,delayed 20 mg PO DAILY #30 tab 11/07/21 release (Protonix) tramadol 50 mg tablet 50 mg PO Q6H PRN #14 tab 11/07/21 ciprofloxacin HCl 500 mg tablet 500 mg PO Q12H #10 tab 11/10/21 (Cipro) ondansetron 4 mg disintegrating 4 mg PO Q6H PRN #4 tab 11/10/21 tablet Only ondansetron and cipro need to be continued - Lab/Diagnostics: e coli greater than 100K with urine culture sensitive to all Education Provided to Patient and Family: Discussed ways to avoid getting UTI and how to identify early UTI Follow-ups: Call office Friday to arrange follow up[ Discharge Disposition: Home Hospital Course: Patient admitted due to nausea & vomiting with acute left pyelonephritis and leukocytosis. Pt treated with IV fluids , IV levoquin, and meds for nausea vomiting and pain. Patient progressed well to day of discharge being asymptomatic with normal am labs . Home with Rx for 5 days of cipro 500 mg bid and ondensetron 4 mg q 6 hrs Plan: Follow up call office friday / nto er if condition changes or worsens
== END 2021-11-10 13:29 | disposition home or self-care (01) ==
LOC: ED 10:57 → MEDSURG A 10:57
PROVIDERS: ADMIT Emergency Medicine; ATTEND Emergency Medicine
DX: Z20.822 Contact with and (suspected) exposure to COVID-19; D72.829 Elevated white blood cell count, unspecified; N12 Tubulo-interstitial nephritis, not specified as acute or chronic